=== PATIENT | female | born 1960 | race Caucasian/White ===

== ENCOUNTER 2020-09-04 16:30 | Outpatient (RCR) | payer OTHER | END 2020-11-04 | disposition home or self-care (01) | LOC: MKS.ESL.PT | DX: M25.561 Pain in right knee (principal) ==

== ENCOUNTER → 2020-12-02 | Outpatient (RCR) | payer OTHER | END | disposition home or self-care (01) | LOC: MKS.ESL.PT | DX: M25.561 Pain in right knee (principal); Z96.651 Presence of right artificial knee joint | CPT/HCPCS: G0283-GP ==

== ENCOUNTER 2021-01-29 10:00 | Outpatient (RCR) | payer OTHER | END 2021-01-29 10:46 | disposition home or self-care (01) | LOC: MKS.ESL.PT 10:00 | DX: M25.561 Pain in right knee (principal); Z96.651 Presence of right artificial knee joint ==